=== PATIENT | female | born 1985 | race Caucasian/White ===

== ENCOUNTER 2016-12-09 17:55 | Outpatient (CLI) | payer OTHER ==
[2014-11-22 22:06] VITALS: BP 123/77
--- NOTE | 2016-12-09 18:30 | Diagnostic Imaging Report ---
[facility] [address] [facility].[address] [address] Report Submission Date: Dec 09, 2016 6:26:18 PM CDT Patient Study Name: DORY KEVIN Date: Dec 09, 2016 6:01:14 PM CDT Modality Type: CR Gender: F Description: CHEST : 81 Institution: [facility] Physician: BRENDEN HOYT Chest PA and lateral views Clinical history: Dyspnea and chest pain for 2 days Normal heart shadow and mediastinum. Clear lungs without acute infiltrates or pleural effusion. No pneumothorax. Normal bony thorax. Impression: No active pulmonary pathology Electronically signed on Dec 09, 2016 6:26:18 PM CDT by: Henrik SANDOVAL
== END 2016-12-09 18:00 | disposition home or self-care (01) ==
LOC: RAD 17:55
PROVIDERS: ATTEND Physician Assistant
DX: R06.02 Shortness of breath (principal)
CPT/HCPCS: 71020

== ENCOUNTER 2018-04-19 09:54 | Emergency (ER) | payer OTHER ==
--- NOTE | 2018-04-19 10:11 | ED Physician Documentation ---
General Adult - HISTORIAN Historian: patient - HPI Chief Complaint: General Adult Further Comments: yes (33 year old female patient presents with concerns she may have a "blood clot" in her left leg. Patient reports multiple areas of "dark veins", c/o pain when bumping into things. 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.) - ROS CONST: no problems EYES/ENT: none CVS/RESP: none GI/: none MS/SKIN/LYMPH: none NEURO/PSYCH: denies: headache, dizziness, tingling, numbness, difficulty walking - PAST HX Past History: none Surgeries/Procedures: Allergies/Adverse Reactions: Allergies Allergy/AdvReac Type Severity Reaction Status Date / Time No Known Allergies Allergy Verified 04/19/18 10:06 Home Medications: Ambulatory Orders Medication Instructions Recorded NK 04/19/18 - SOCIAL HX Smoking History: cigarettes - FAMILY HX Family History: No - VITAL SIGNS Vital Signs: Vital Signs Temp Pulse Resp BP Pulse Ox 123/77 11/22/14 23:52 - REVIEWED ASSESSMENTS Nursing Assessment Reviewed: Yes Vitals Reviewed: Yes Progress - Progress Progress: Education on DVT verses varicose veins. General Adult Physical Exam - PHYSICAL EXAM GENERAL APPEARANCE: mild distress EENT: eye inspection normal, ANDREW RESPIRATORY: no resp distress CVS: reg rate & rhythm, heart sounds normal, no murmur ABDOMEN: soft, normal bowel sounds SKIN: normal color, warm/dry, NR, INT, PAL, DR EXTREMITIES: non-tender, normal range of motion, no evidence of injury, no edema, other (bilateral lower legs with multiple areas of spider veins; left lower, posterior leg with varicose vein; PPP 3+, no edema, calf measurment equal, neg wilbur's sign bilaterally; feet pink, warm and dry) NEURO: oriented X3, CN's nml as tested, motor nml, sensation nml, mood/affect nml Discharge Clincal Impression: Varicosities of leg Qualifiers: Varicose vein complication: pain Laterality: left Qualified Code(s): I83.812 - Varicose veins of left lower extremity with pain Referrals: Primary Doctor,No [Primary Care Provider] - 2 Days Condition: Stable Disposition: 01 HOME, SELF-CARE Decision to Admit: NO Decision Time: 10:12
[2018-04-19] MEDS: 0.9 % SODIUM CHLORIDE 1,000 ML IV ONE (10:33)
[2018-04-19] MEDS: SODIUM BICARBONATE 2.4 MEQ VIAL INJ ONE (10:33)
[2018-04-19 11:24] VITALS: BP 104/62
== END 2018-04-19 10:35 | disposition home or self-care (01) ==
LOC: ED 09:54
DX: I83.812 Varicose veins of left lower extremity with pain (principal)
CPT/HCPCS: 99282